=== PATIENT | male | born 1960 | race Caucasian/White ===

== ENCOUNTER 2018-03-08 18:07 | Emergency (ER) | payer OTHER ==
[~2018-03-08] VITALS: Ht 167.6 cm; Wt 77.1 kg
[2018-03-08 19:39] VITALS: BP 130/79
--- NOTE | 2018-03-08 20:29 | NUR ---
US AT BEDSIDE
== END 2018-03-08 21:22 | disposition home or self-care (01) ==
LOC: ER 18:08
DX: I80.8 Phlebitis and thrombophlebitis of other sites (principal)
CPT/HCPCS: 93971; 99284; A4606; Z7610